=== PATIENT | female | born 2000 | race Two or more races ===

== ENCOUNTER 2024-08-31 15:44 | Emergency (ER) | payer MEDICAID, OTHER ==
[~2024-08-31] VITALS: Ht 149.9 cm; Wt 116.6 kg
--- NOTE | 2024-08-31 16:17 | ED.PDOC ---
Back pain HPI HPI Comments HPI: Poor Historian. 24-year-old female presents to emergency department for evaluation of three day history of left lumbosacral pain that radiates to the left groin area. Pain has been progressively getting worse. Pain is constant. Pain is worse with movement. Denies any other acute symptoms. Patient states on possible , currently, after missing her period, this month, with LMP on 07/23/24. PMHx: morbid obesity PSHx: , cholecystectomy REVIEW OF SYSTEMS: CONSTITUTIONAL: Denies acute: fever, diaphoresis, chills, generalized weakness. HEAD: Denies acute: headache, photophobia Eyes: Denies acute: Double vision, vision loss, eye pain, eye discharge. EARS: Denies acute: tinnitus, hearing loss, ear discharge, ear pain, THROAT: Denies acute: sore throat, swelling, difficulty swallowing , pain with swallowing, change in voice. NECK: Denies acute: neck pain, neck swelling, stiff neck. HEART: Denies acute : chest pain, palpitations, LUNGS: Denies acute: SOB, wheezing, cough, hemoptysis ABDOMEN: Denies acute: Nausea, Vomiting, diarrhea, melena , hematemesis, hematochezia SKIN: Denies acute: rash, redness, lesions, itchiness. EXTREMITIES: Denies acute: calf pain, numbness, tingling, weakness, denies pain in extremity. Neuro: Denies acute: focal neurological deficit, motor or sensory focal neurological deficit, tremors, seizure like activity, confusion, dizziness, change in mental status, loss of bowel or bladder function, cauda equina like symptoms. : Denies acute: dysuria, hematuria, flank pain, increase in urinary frequency. PSYCH: Denies acute: hallucination, suicidal ideation, homicidal ideation. FEMALE: Denies acute: abnormal vaginal bleeding, foul odor, unusual discharge. PHYSICAL EXAM: General: no acute distress, awake and alert. Head: normocephalic, atraumatic. Neck: supple, trachea is midline, no swelling. Throat: Normal phonation. Eyes:, no erythema, no purulent discharge, no proptosis, no icterus. Heart: regular rate, regular rhythm, no significant murmur appreciated. Lungs: no apparent respiratory distress, Able to speak in full sentences. No wheezing, no rhonchi, no crackles. No stridors Clear to auscultation bilaterally. Abdomen: Left lower quadrant focal tender to palpation, non distended, soft, no guarding, no rebound, + bowel sounds. Morbidly obese Patient points to her left lumbosacral area that is tender to palpation. She says that the pain radiates to her left groin area Neuro: Awake, Alert, oriented to name, self, situation, follows commands GCS=15. Speech is normal. Skin: no petechia, no purpura, no cyanosis, non-pale, not jaundice. Lower extremities: --no - Pitting edema no deformity, no focal swelling, no calf TTP. Makes eye contact. moves all four extremities. Face: no apparent facial droop. No CVA tenderness to percussion bilaterally. Ambulating in the ED independently. Chief Complaint: Pelvic Pain Time Seen by MD: 16:00 Allergies: Coded Allergies: NO KNOWN ALLERGIES (Unverified , 08/31/24) Home Meds Active Scripts Nitrofurantoin Monohydrate Mac (Macrobid) 100 Mg Cap, 100 MG PO BID for 7 Days, #14 CAP Prov:OLIVIA TANG Suly MONTALVO 09/01/24 Information Source: Patient, Relative Was a procedure done? Was a procedure done?: No Back Pain Differential Dx Differential Diagnosis: AAA, , Aortic Dissection, Appendicitis, Bowel Obstruction, Cholelithiasis, Cholangitis, DJD, Ectopic Pregnany, Fracture, Hepatitis, Musculoskeletal Pain, Pancreatits, Pyelonephritis, Strain, Urinary Obstruction, Urolithiasis, Ovarian Torsion X-Ray, Labs, Meds, VS Vital Signs Date Time Temp Pulse Resp B/P (MAP) Pulse Ox O2 Delivery O2 Flow Rate FiO2 09/01/24 03:30 99.0 82 16 133/87 (102) 97 99.0 09/01/24 00:33 99.0 88 16 136/88 (104) 96 99.0 09/01/24 00:31 88 16 96 Room Air* 0 21 08/31/24 21:23 99.3 93 18 136/91 (106) 97 08/31/24 16:10 98.0 92 19 135/93 (107) 96 Lab Test 09/01/24 00:51 08/31/24 22:57 08/31/24 16:53 08/31/24 16:30 Range/Units Lactic Acid Level 1.2 0.4-2.0 mmol/L White Blood Count 14.4 H 12.3 H 4.4-10.8 10^3/uL Red Blood Count 5.10 4.98 4.0-5.20 10^6/uL Hemoglobin 14.0 13.4 12.2-16.2 g/dL Hematocrit 42.7 41.6 36.0-46.0 % Mean Corpuscular Volume 83.6 83.5 80.0-100.0 fL Mean Corpuscular Hemoglobin 27.4 L 26.9 L 28.0-32.0 pg Mean Corpuscular Hemoglobin Concent 32.7 32.2 32.0-36.0 g/dL Red Cell Distribution Width 14.0 14.1 11.8-14.3 % Platelet Count 413 418 140-450 10^3/uL Mean Platelet Volume 8.2 8.5 6.9-10.8 fL Neutrophils (%) (Auto) 65.7 59.3 37.0-80.0 % Lymphocytes (%) (Auto) 24.8 29.1 10.0-50.0 % Monocytes (%) (Auto) 5.9 8.0 0.0-12.0 % Eosinophils (%) (Auto) 2.8 2.9 0.0-7.0 % Basophils (%) (Auto) 0.8 0.7 0.0-2.0 % Neutrophils # (Auto) 9.4 H 7.3 1.6-8.6 10 ^3/uL Lymphocytes # (Auto) 3.6 3.6 0.4-5.4 10 ^3/uL Monocytes # (Auto) 0.9 1.0 0-1.3 10 ^3/uL Eosinophils # (Auto) 0.4 0.4 0-0.8 10 ^3/uL Basophils # (Auto) 0.1 0.1 0-0.2 10 ^3/uL Nucleated Red Blood Cells 0.0 0.0 % Urine Color Light-yellow Yellow Urine Clarity Turbid H Clear Urine pH 6.0 5.0-9.0 Urine Specific [place] 1.020 1.001-1.035 Urine Protein Trace H Negative Urine Ketones Negative Negative Urine Blood Negative Negative /uL Urine Nitrite Negative Negative Urine Bilirubin Negative Negative Urine Urobilinogen Normal Negative mg/dL Urine Leukocyte Esterase 3+ Negative /uL Urine RBC 8 0 - 4 /hpf Urine WBC 21 0 - 5 /hpf Urine Squamous Epithelial Cells Few <5 /hpf Urine Bacteria Few H None Seen /hpf Urine Mucus Few None Seen Urine Glucose Normal Normal mg/dL Sodium Level 141 136-145 mmol/L Potassium Level 4.3 3.5-5.1 mmol/L Chloride Level 105 98-107 mmol/L Carbon Dioxide Level 31 20-31 mmol/L Anion Gap 5 5-15 Blood Urea Nitrogen 10 9-23 mg/dL Creatinine 0.64 0.550-1.02 mg/dL Glomerular Filtration Rate Calc 125 >90 mL/min BUN/Creatinine Ratio 15.6 10.0-20.0 Serum Glucose 89 74-106 mg/dL Calcium Level 10.4 8.7-10.4 mg/dL Total Bilirubin 0.2 0.2-1.0 mg/dL Aspartate Amino Transferase (AST) 28 13-40 U/L Alanine Aminotransferase (ALT) 74 H 7-40 U/L Alkaline Phosphatase 100 46-116 U/L Total Protein 7.2 5.7-8.2 g/dL Albumin 4.4 3.2-4.8 g/dL Beta HCG, Quantitative 1.6 1.5-4.2 mIU/mL Time of 1ST Reevaluation: 16:30 Reevaluation 1ST: Unchanged Time of 2ND Reevaluation: 19:07 (Patient eloped) Patient Education/Counseling: Diagnosis, Treatment Family Education/Counseling: No Family Present Comments Patient eloped after her 1st visit but when she came back at least an hour and a half later we opened up the same account she had previously. Patient presented with the above HPI.--pelvic pain----workup was initiated. patient was found with the above mentioned diagnosis. the following medications were ordered: Rocephin, hydrocodone, 1 L normal harshad ine bolus, the following tests were ordered: Labs, UA, CT abdomen and pelvis no contrast, transvaginal ultrasound, Patient ED course and VS have been stabilized. Patient has been reassessed in the ED and remained in a stable condition. Pertinent incidental findings were discussed with the patient and/or family. Patient/family voices understanding and is agreeable with plan. Patient has been observed in the ED adequate length of time to insure improvement/stability. Escalation of care considered: Consideration of escalation to observation or admission Patient was DISCHARGED home in a stable condition. All the reports of any imaging studies that were ordered by myself were reviewed by myself. Departure 1 Departure Time of Disposition: 19:06 Impression: Primary Impression: UTI (urinary tract infection) Additional Impressions: Eloped from emergency department Left ovarian cyst Disposition: 07 LEFT AWOL/ELOPED Condition: Stable Additional Instructions: Additional discharge instructions: You MUST follow-up with your primary care/family doctor in 1 to 2 days. If you are unable to see your primary care/family doctor, please return to our emergency room for re-assessment and re-evaluation in 1 to 2 days. Return to the emergency room here in our facility or to the nearest ER [facility] if your symptoms change or worsen. CONSULTATIONS: you MUST Follow-up for consultation as soon as possible with: Dr.-OB Woodson doctor in 1-2 days. Please call for appointment. You MUST call the consultants office yourself to make an appointment. You may need to arrange that through your insurance and/or your primary/family doctor. If you are unable to see the application support consultant in 1 to 2 days, you must return to our emergency room (or any other ER of your choice) for re-assessment and re- evaluation. Adequate fluid hydration. Below is a copy of your radiological report for follow up: [place] [id number] Ph: [phone] DIAGNOSTIC IMAGING Diagnostic Imaging Report : [id number] Signed PATIENT: ANISH ANDRE ACCT: [id number] UNIT: [id number] : 2000 LOC: ER ROOM / BED: / AGE / SEX: 24 / F ADM STATUS: REG ER SERVICE 30 ORDERING PHYSICIAN: OLIVIA TANG DO PROCEDURE(s): PELUS - PELVIC REASON: LLQ PAIN ORDER NUMBER(s): [id number], ACCESSION NUMBER(s): [id number] INDICATION: LLQ PAIN TECHNIQUE: Multiple real-time grayscale transabdominal sonographic images along with color and duplex Doppler of the uterus and ovaries were obtained. COMPARISON: None FINDINGS: The uterus measures 9.8 x 5.6 x 4.2 cm. The endometrial stripe measures 1.0 cm. Right ovary measures 4.6 x 2.7 x 3.6 cm with normal Doppler color flow. There is a 1 cm follicular cyst. Left ovary measures 2.9 x 2.6 x 2.7 cm with normal Doppler color flow. Cystic lesion measuring up to 3 cm. IMPRESSION: No sonographic evidence of acute pelvic abnormalities. The left ovarian cystic lesion measures up to 3 cm on this study however on same-day CT measures up to 5 cm. Possible Venetian blind sign of the uterus suggestive of adenomyosis. This can be further evaluated with nonemergent pelvic MRI if clinically indicated. ATED BY: MATEO CHI DO DICTATED DATE/TIME: 08/31/242247 SIGNED BY: MATEO CHI DO SIGNED DATE/TIME: 08/31/242247 CC: [place] [id number] Ph: [phone] DIAGNOSTIC IMAGING Diagnostic Imaging Report : [id number] Signed PATIENT: ANISH ANDRE ACCT: [id number] UNIT: [id number] : 2000 LOC: ER ROOM / BED: / AGE / SEX: 24 / F ADM STATUS: REG ER SERVICE 21 ORDERING PHYSICIAN: OLIVIA TANG DO PROCEDURE(s): ABPL - CT AB PEL WO CON-NO ORAL OR IV REASON: Left low back pain radiating to LLQ ORDER NUMBER(s): [id number], ACCESSION NUMBER(s): [id number] Exam: CT CT AB PEL WO CON-NO ORAL OR IV History: Left low back pain radiating to LLQ Comparison Study: None available at time of dictation. Technique: Multidetector spiral CT of the abdomen was performed from lung bases to pubic symphysis. Imaging was performed without IV contrast. Axial, coronal and sagittal multiplanar reformats were obtained from the axial data set by the technologist. Radiation Dose : 1. Abdomen/Pelvis: CTDIvol 27 mGy, DLP 1565 mGy*cm. Findings: Evaluation of solid organs is limited due to lack of intravenous contrast use. Lung Bases: No acute or significant lung base finding. Normal heart size. No pleural or pericardial effusion. Liver: The liver is normal in size. No focal lesions. Gallbladder and Biliary Tree: Gallbladder is surgically absent. Spleen: Unremarkable Pancreas: The pancreas is grossly normal in appearance. Adrenal Glands: Unremarkable Kidneys: Kidneys are grossly normal without calculi or hydronephrosis. Bladder: Grossly unremarkable for degree of distention. Bowel: The stomach is grossly normal in appearance. Small bowel and colon are normal in caliber and distribution. Normal appendix is visualized in the right lower quadrant without findings of appendicitis. Ascites: Absent Lymphadenopathy: No mesenteric, retroperitoneal or periportal lymphadenopathy. Abdominal Wall and Mesentery: Unremarkable. Vasculature: The visualized abdominal aorta is normal in size and caliber. Evaluation of abdominal and pelvic vessels is limited due to lack of intravenous contrast. Pelvic Organs: Cystic lesion in the left adnexa measuring 5 cm. Musculoskeletal: No aggressive focal bony lesions, acute fractures or dislocation. IMPRESSION: No acute abdominal or pelvic findings. Left adnexal hypodensity measuring 5 cm which can be further evaluated with ultrasound if clinically indicated. END IMPRESSION: ATED BY: MATEO CHI DO DICTATED DATE/TIME: 08/31/242214 SIGNED BY: MATEO CHI DO SIGNED DATE/TIME: 08/31/242214 CC: e-Prescriptions Nitrofurantoin Monohydrate Mac (Macrobid) 100 Mg Cap 100 MG PO BID for 7 Days, #14 CAP Prov: OLIVIA TANG DO 09/01/24 Discharged With: Self Critical Care Note Critical Care Time?: No I personally scribed for OLIVIA TANG DO ([email or web address]) on 08/31/24 at 16:17. Electronically submitted by Avery Waterman ([email or web address]). OLIVIA TANG DO Aug 31, 2024 16:17
[2024-08-31 17:02] LABS: Urine Bacteria FEW /hpf (None Seen); Urine Blood Negative /uL (Negative); Urine Clarity Turbid (Clear); Urine Color Light-Yellow (Yellow); Urine Mucus FEW (None Seen); Urine Protein, UAD TRACE (Negative); Urine Squamous Epithelial Cell FEW /hpf (<5); Urine Urobilinogen Normal (Negative); Urine WBC 21 /hpf (0 - 5)
[2024-08-31 17:08] LABS: Basophils # (auto) 0.1 10 ^3/uL (0-0.2); Basophils % (auto) 0.7 % (0.0-2.0); Eosinophils # (auto) 0.4 10 ^3/uL (0-0.8); Eosinophils % (auto) 2.9 % (0.0-7.0); Hematocrit 41.6 % (36.0-46.0); Hemoglobin 13.4 g/dL (12.2-16.2); Lymphocytes # (auto) 3.6 10 ^3/uL (0.4-5.4); Lymphocytes % (auto) 29.1 % (10.0-50.0); Mean Corpuscular Hemoglobin 26.9 pg (28.0-32.0); Mean Corpuscular Hgb Conc. 32.2 g/dL (32.0-36.0); Mean Corpuscular Volume 83.5 fL (80.0-100.0); Neutrophils # (auto) 7.3 10 ^3/uL (1.6-8.6); Neutrophils % (auto) 59.3 % (37.0-80.0); Platelet Count (auto) 418 10^3/uL (140-450); Red Blood Cells 4.98 10^6/uL (4.0-5.20); Red Cell Distribution Width 14.1 % (11.8-14.3); White Blood Cell 12.3 10^3/uL (4.4-10.8)
[2024-08-31 17:27] LABS: Albumin 4.4 g/dL (3.2-4.8); Alkaline Phosphatase 100 U/L (46-116); Anion Gap 5 (5-15); Aspartate Aminotransferase 28 U/L (13-40); BUN/Creatinine Ratio 15.6 (10.0-20.0); Blood Urea Nitrogen 10 mg/dL (9-23); Calcium 10.4 mg/dL (8.7-10.4); Carbon Dioxide 31 mmol/L (20-31); Chloride 105 mmol/L (98-107); Glucose 89 mg/dL (74-106); Potassium 4.3 mmol/L (3.5-5.1); Sodium 141 mmol/L (136-145)
[2024-08-31 17:28] LABS: Bilirubin, Total 0.2 mg/dL (0.2-1.0); Total Protein 7.2 g/dL (5.7-8.2)
[2024-08-31 17:36] LABS: Alanine Aminotransferase 74 U/L (7-40)
--- NOTE | 2024-08-31 22:17 | DVH ---
Exam: CT CT AB PEL WO CON-NO ORAL OR IV History: Left low back pain radiating to LLQ Comparison Study: None available at time of dictation. Technique: Multidetector spiral CT of the abdomen was performed from lung bases to pubic symphysis. Imaging was performed without IV contrast. Axial, coronal and sagittal multiplanar reformats were ob tained from the axial data set by the technologist. Radiation Dose : 1. Abdomen/Pelvis: CTDIvol 27 mGy, DLP 1565 mGy*cm. Findings: Evaluation of solid organs is limited due to lack of intravenous contrast use. Lung Bases: No acute or significant lung base finding. Normal heart size. No pleural or pericardial effusion. Liver: The liver is normal in size. No focal lesions. Gallbladder and Biliary Tree: Gallbladder is surgically absent. Spleen: Unremarkable Pancreas: The pancreas is grossly normal in appearance. Adrenal Glands: Unremarkable Kidneys: Kidneys are grossly normal without calculi or hydronephrosis. Bladder: Grossly unremarkable for degree of distention. Bowel: The stomach is grossly normal in appearance. Small bowel and colon are normal in caliber and d istribution. Normal appendix is visualized in the right lower quadrant without findings of appendici tis. Ascites: Absent Lymphadenopathy: No mesenteric, retroperitoneal or periportal lymphadenopathy. Abdominal Wall and Mesentery: Unremarkable. Vasculature: The visualized abdominal aorta is normal in size and caliber. Evaluation of abdominal a nd pelvic vessels is limited due to lack of intravenous contrast. Pelvic Organs: Cystic lesion in the left adnexa measuring 5 cm. Musculoskeletal: No aggressive focal bony lesions, acute fractures or dislocation. IMPRESSION: No acute abdominal or pelvic findings. Left adnexal hypodensity measuring 5 cm which can be further e valuated with ultrasound if clinically indicated. END IMPRESSION:
--- NOTE | 2024-08-31 22:51 | DVH ---
INDICATION: LLQ PAIN TECHNIQUE: Multiple real-time grayscale transabdominal sonographic images along with color and duplex Doppler of the uterus and ovaries were obtained. COMPARISON: None FINDINGS: The uterus measures 9.8 x 5.6 x 4.2 cm. The endometrial stripe measures 1.0 cm. Right ovary measures 4.6 x 2.7 x 3.6 cm with normal Doppler color flow. There is a 1 cm follicular c yst. Left ovary measures 2.9 x 2.6 x 2.7 cm with normal Doppler color flow. Cystic lesion measuring up to 3 cm. IMPRESSION: No sonographic evidence of acute pelvic abnormalities. The left ovarian cystic lesion measures up to 3 cm on this study however on same-day CT measures up to 5 cm. Possible Venetian blind sign of the ut erus suggestive of adenomyosis. This can be further evaluated with nonemergent pelvic MRI if clinical ly indicated.
[2024-08-31 23:05] LABS: Basophils # (auto) 0.1 10 ^3/uL (0-0.2); Basophils % (auto) 0.8 % (0.0-2.0); Eosinophils # (auto) 0.4 10 ^3/uL (0-0.8); Eosinophils % (auto) 2.8 % (0.0-7.0); Hematocrit 42.7 % (36.0-46.0); Lymphocytes # (auto) 3.6 10 ^3/uL (0.4-5.4); Lymphocytes % (auto) 24.8 % (10.0-50.0); Mean Corpuscular Hemoglobin 27.4 pg (28.0-32.0); Mean Corpuscular Hgb Conc. 32.7 g/dL (32.0-36.0); Mean Corpuscular Volume 83.6 fL (80.0-100.0); Monocytes # (auto) 0.9 10 ^3/uL (0-1.3); Monocytes % (auto) 5.9 % (0.0-12.0); Neutrophils # (auto) 9.4 10 ^3/uL (1.6-8.6); Neutrophils % (auto) 65.7 % (37.0-80.0); Platelet Count (auto) 413 10^3/uL (140-450); White Blood Cell 14.4 10^3/uL (4.4-10.8)
[2024-09-01] MEDS: cefTRIAXone 1GM/50ML D5W 50 ML IV ONE (00:30)
[2024-09-01] MEDS: HYDROcodone-ACET 5/325MG TAB PO ONE (00:30)
[2024-09-01 00:31] VITALS: PULSE 88; RESP 16; O2SAT 96
[2024-09-01] MEDS: SODIUM CHLORIDE 0.9% 1,000 ML IV ONE (00:41)
[2024-09-01] MEDS ORDERED: ASPirin 325 MG TAB PO ONE (01:45)
[2024-09-01] MEDS ORDERED: NITR-87 PO (01:48)
[2024-09-01 03:30] VITALS: BP 133/87; PULSE 82; RESP 16; TEMP 99; O2SAT 97
== END 2024-09-01 03:40 | disposition home or self-care (01) ==
LOC: ER 15:44
DX: N39.0 Urinary tract infection, site not specified (principal); R10.2 Pelvic and perineal pain; N83.202 Unspecified ovarian cyst, left side; Z90.49 Acquired absence of other specified parts of digestive tract; Z98.890 Other specified postprocedural states
CPT/HCPCS: 36415; 74176; 76830; 76856; 80053; 81001; 83605; 84702; 85025; 96365; 99285; J0696

== ENCOUNTER 2024-08-31 20:40 | Emergency (ER) | payer MEDICAID ==
[2024-09-01] MEDS ORDERED: NITR-87 PO (01:48)
== END 2024-09-01 02:51 | disposition left against medical advice (07) ==
LOC: ER 20:40
DX: R10.9 Unspecified abdominal pain (principal); Z53.21 Procedure and treatment not carried out due to patient leaving prior to being seen by health care provider

== ENCOUNTER 2024-11-17 22:30 | Emergency (ER) | payer MEDICAID ==
[~2024-11-17] VITALS: Ht 149.9 cm; Wt 117.5 kg
[~2024-11-17 22:30] MED LIST: NITR-87 PO
--- NOTE | 2024-11-17 23:00 | ED.PDOC ---
HPI Comments HPI: Poor Historian. 24-year-old female presents to emergency department for evaluation of non specific midsternal chest pain nonradiating and sensation of shortness of breath when she tries to breathe. Patient completed course of antibiotics for a dental procedure yesterday. Patient has been taking Naprosyn 500 mg twice a day. Denies any tobacco abuse. Denies any family history of coronary artery disease. Past Medical History: Denies any Past Surgical History: , cholecystectomy, tooth extraction REVIEW OF SYSTEMS: CONSTITUTIONAL: Denies acute: fever, diaphoresis, chills, generalized weakness. HEAD: Denies acute: headache, photophobia Eyes: Denies acute: Double vision, vision loss, eye pain, eye discharge. EARS: Denies acute: tinnitus, hearing loss, ear discharge, ear pain, THROAT: Denies acute: sore throat, swelling, difficulty swallowing , pain with swallowing, change in voice. NECK: Denies acute: neck pain, neck swelling, stiff neck. HEART: Denies acute : palpitations, LUNGS: Denies acute: wheezing, cough, hemoptysis ABDOMEN: Denies acute: abdominal pain, Vomiting, diarrhea, melena , hematemesis, hematochezia SKIN: Denies acute: rash, redness, lesions, itchiness. EXTREMITIES: Denies acute: calf pain, numbness, tingling, weakness, denies pain in extremity. Denies acute: Low back pain. Neuro: Denies acute: focal neurological deficit, motor or sensory focal neurological deficit, tremors, seizure like activity, confusion, dizziness, change in mental status, loss of bowel or bladder function, cauda equina like symptoms. : Denies acute: dysuria, hematuria, flank pain, increase in urinary frequency. PSYCH: Denies acute: hallucination, suicidal ideation, homicidal ideation. FEMALE: Denies acute: abnormal vaginal bleeding, foul odor, unusual discharge. PHYSICAL EXAM: General: no acute distress, awake and alert. Head: normocephalic, atraumatic. Neck: supple, trachea is midline, no swelling. Throat: Normal phonation. Eyes:, no erythema, no purulent discharge, no proptosis, no icterus. Heart: regular rate, regular rhythm, no significant murmur appreciated. Lungs: no apparent respiratory distress, Able to speak in full sentences. No wheezing, no rhonchi, no crackles. No stridors Clear to auscultation bilaterally. Abdomen: non tender to palpation, non distended, soft, no guarding, no rebound, + bowel sounds. Morbidly obese Neuro: Awake, Alert, oriented to name, self, situation, follows commands GCS=15. Speech is normal. Skin: no petechia, no purpura, no cyanosis, non-pale, not jaundice. Lower extremities: --no - Pitting edema no deformity, no focal swelling, no calf TTP. Makes eye contact. moves all four extremities. Face: no apparent facial droop. Ambulating in the ED independently. No nuchal rigidity, Kernig's sign, Brudzinski's sign, no meningeal signs. ED COURSE: Chief Complaint: Chest Pain Time Seen by MD: 22:45 Reviewed Notes: Nurses Notes, Medications, Allergies Allergies: Coded Allergies: NO KNOWN ALLERGIES (Unverified , 08/31/24) Home Meds Active Scripts Nitrofurantoin Monohydrate Mac (Macrobid) 100 Mg Cap, 100 MG PO BID for 7 Days, #14 CAP Prov:OLIVIA TANG DO 09/01/24 Information Source: Patient Was a procedure done? Was a procedure done?: No CP Differential Dx Differential Diagnosis: N/A Differential Diagnosis: Other (Ddx include but not limitied to gastritis, musculoskeletal pain, radiculopathy, atypical chest pain, dissection, aneurysm, ACS, unstable angina, hiatal hernia, GERD, anxiety, costochondritis, PE, pneumothroax, neoplasm, cardiac ischemia, drug abuse, anemia.) X-Ray, Labs, Meds, VS Vital Signs Date Time Temp Pulse Resp B/P (MAP) Pulse Ox O2 Delivery O2 Flow Rate FiO2 11/17/24 23:02 79 11/17/24 22:30 98.1 81 16 125/81 (96) 96 Lab Test 11/18/24 00:13 11/17/24 23:10 11/17/24 23:00 Range/Units Troponin I High Sensitivity < 3 L < 3 L </=34 ng/L White Blood Count 14.1 H 4.4-10.8 10^3/uL Red Blood Count 5.21 H 4.0-5.20 10^6/uL Hemoglobin 14.0 12.2-16.2 g/dL Hematocrit 43.3 36.0-46.0 % Mean Corpuscular Volume 83.2 80.0-100.0 fL Mean Corpuscular Hemoglobin 26.8 L 28.0-32.0 pg Mean Corpuscular Hemoglobin Concent 32.2 32.0-36.0 g/dL Red Cell Distribution Width 15.4 H 11.8-14.3 % Platelet Count 386 140-450 10^3/uL Mean Platelet Volume 8.5 6.9-10.8 fL Neutrophils (%) (Auto) 65.9 37.0-80.0 % Lymphocytes (%) (Auto) 23.6 10.0-50.0 % Monocytes (%) (Auto) 6.4 0.0-12.0 % Eosinophils (%) (Auto) 3.2 0.0-7.0 % Basophils (%) (Auto) 0.9 0.0-2.0 % Neutrophils # (Auto) 9.3 H 1.6-8.6 10 ^3/uL Lymphocytes # (Auto) 3.3 0.4-5.4 10 ^3/uL Monocytes # (Auto) 0.9 0-1.3 10 ^3/uL Eosinophils # (Auto) 0.4 0-0.8 10 ^3/uL Basophils # (Auto) 0.1 0-0.2 10 ^3/uL Nucleated Red Blood Cells 0.0 % Sodium Level 140 136-145 mmol/L Potassium Level 4.0 3.5-5.1 mmol/L Chloride Level 105 98-107 mmol/L Carbon Dioxide Level 28 20-31 mmol/L Anion Gap 7 5-15 Blood Urea Nitrogen 11 9-23 mg/dL Creatinine 0.52 L 0.550-1.02 mg/dL Glomerular Filtration Rate Calc 131 >90 mL/min BUN/Creatinine Ratio 21.2 H 10.0-20.0 Serum Glucose 97 74-106 mg/dL Lactic Acid Level 1.3 0.4-2.0 mmol/L Calcium Level 10.3 8.7-10.4 mg/dL Total Bilirubin 0.3 0.2-1.0 mg/dL Aspartate Amino Transferase (AST) 29 13-40 U/L Alanine Aminotransferase (ALT) 78 H 7-40 U/L Alkaline Phosphatase 93 46-116 U/L Total Protein 7.4 5.7-8.2 g/dL Albumin 4.8 3.2-4.8 g/dL Lipase 32 12-53 U/L Urine Color Light-yellow Yellow Urine Clarity Clear Clear Urine pH 6.5 5.0-9.0 Urine Specific [place] 1.021 1.001-1.035 Urine Protein Negative Negative Urine Ketones Negative Negative Urine Blood Negative Negative /uL Urine Nitrite Negative Negative Urine Bilirubin Negative Negative Urine Urobilinogen Normal Negative mg/dL Urine Leukocyte Esterase Negative Negative /uL Urine RBC 1 0 - 4 /hpf Urine Microscopic WBC < 1 0-5 /HPF Urine Squamous Epithelial Cells Few <5 /hpf Urine Bacteria None seen None Seen /hpf Urine Mucus Few None Seen Urine Glucose Normal Normal mg/dL Current Medications Medications (Trade) Dose Ordered Sig/Blanca Route Start Time Stop Time Status Last Admin Pantoprazole Sodium (Protonix Tablet) 40 mg ONCE ONCE PO 11/17/24 23:00 11/17/24 23:01 DC 11/18/24 02:16 Sucralfate (Carafate Tab) 1 gm ONCE ONCE PO 11/17/24 23:00 11/17/24 23:01 DC 11/18/24 02:16 Lidocaine HCl (Xylocaine 2% Viscous) 10 ml ONCE ONCE PO 11/17/24 23:00 11/17/24 23:01 DC 11/18/24 02:16 [place] [id number] Ph: [phone] DIAGNOSTIC IMAGING Diagnostic Imaging Report : [id number] Signed PATIENT: ANISH ANDREACCT: [id number] UNIT: [id number] : 2000 LOC: ER ROOM / BED: / AGE / SEX: 24 / F ADM STATUS: REG ER SERVICE 647 ORDERING PHYSICIAN: OLIVIA TANG DO PROCEDURE(s): CXRP - CHEST PORTABLE REASON: cp ORDER NUMBER(s): [id number], ACCESSION NUMBER(s): [id number] CHEST RADIOGRAPH Indication: cp Technique: Single frontal view of the chest was obtained COMPARISON: None FINDINGS: Lines and Tubes: None Lungs: Clear Pleura: No effusion. No pneumothorax. Cardiomediastinal contours: Unremarkable Bones: Unremarkable IMPRESSION: No abnormality. ATED BY: SUKHI BLANCO MD DICTATED DATE/TIME: 11/17/242332 SIGNED BY: SUKHI BLANCO MD SIGNED DATE/TIME: 11/17/242332 CC: Time of 1ST Reevaluation: 02:20 Reevaluation 1ST: Resolved Patient Education/Counseling: Diagnosis, Treatment Family Education/Counseling: No Family Present Comments Patient presented with the above HPI.--chest pain----workup was initiated. patient was found with the above mentioned diagnosis. the following medications were ordered: please refer to order lists of meds and tests obtained by myself Dr. Tang. Patient ED course and VS have been stabilized. Patient has been reassessed in the ED and remained in a stable condition. Pertinent incidental findings were discussed with the patient and/or family. Patient/family voices understanding and is agreeable with plan. Patient has been observed in the ED adequate length of time to insure improvement/stability. Escalation of care considered: Consideration of escalation to observation or admission Heart score is low. Patient was DISCHARGED home in a stable condition. All the reports of any imaging studies that were ordered by myself were reviewed by myself. Departure 1 Departure Time of Disposition: 01:03 Impression: Primary Impression: Chest pain Disposition: 01 HOME / SELF CARE / HOMELESS Condition: Stable Additional Instructions: Additional discharge instructions: You MUST follow-up with your primary care/family doctor in 1 to 2 days. If you are unable to see your primary care/family doctor, please return to our emergency room for re-assessment and re-evaluation in 1 to 2 days. Return to the emergency room here in our facility or to the nearest ER [facility] if your symptoms change or worsen. CONSULTATIONS: you MUST Follow-up for consultation as soon as possible with: -cardiology and gastroenterology in 1-2 days. Please call for appointment. You MUST call the consultants office yourself to make an appointment. You may need to arrange that through your insurance and/or your primary/family doctor. If you are unable to see the air quality consultant in 1 to 2 days, you must return to our emergency room (or any other ER of your choice) for re-assessment and re- evaluation. Adequate fluid hydration. Repeat CBC in 24-48 hours. Avoid fatty greasy spicy food. Avoid caffeinated products. Avoid NSAIDs including Naprosyn. Use Tylenol for pain control. Discharged With: Self Critical Care Note Critical Care Time?: No Heart Score Heart Score: Heart Score Response (Comments) Value History Slightly Suspicious 0 EKG Normal 0 Age <45 0 Risk Factors 1 or 2 risk factors 1 Troponin Normal limit 0 Total 1 OLIVIA TANG DO Nov 17, 2024 23:00
--- NOTE | 2024-11-17 23:36 | DVH ---
CHEST RADIOGRAPH Indication: cp Technique: Single frontal view of the chest was obtained COMPARISON: None FINDINGS: Lines and Tubes: None Lungs: Clear Pleura: No effusion. No pneumothorax. Cardiomediastinal contours: Unremarkable Bones: Unremarkable IMPRESSION: No abnormality.
[2024-11-17 23:47] LABS: Basophils # (auto) 0.1 10 ^3/uL (0-0.2); Eosinophils # (auto) 0.4 10 ^3/uL (0-0.8); Mean Corpuscular Hemoglobin 26.8 pg (28.0-32.0); Mean Corpuscular Hgb Conc. 32.2 g/dL (32.0-36.0); Monocytes # (auto) 0.9 10 ^3/uL (0-1.3); White Blood Cell 14.1 10^3/uL (4.4-10.8)
[2024-11-17 23:49] LABS: Basophils % (auto) 0.9 % (0.0-2.0); Eosinophils % (auto) 3.2 % (0.0-7.0); Hematocrit 43.3 % (36.0-46.0); Lymphocytes # (auto) 3.3 10 ^3/uL (0.4-5.4); Lymphocytes % (auto) 23.6 % (10.0-50.0); Mean Corpuscular Volume 83.2 fL (80.0-100.0); Monocytes % (auto) 6.4 % (0.0-12.0); Neutrophils # (auto) 9.3 10 ^3/uL (1.6-8.6); Neutrophils % (auto) 65.9 % (37.0-80.0); Platelet Count (auto) 386 10^3/uL (140-450); Red Blood Cells 5.21 10^6/uL (4.0-5.20); Red Cell Distribution Width 15.4 % (11.8-14.3)
[2024-11-17 23:50] LABS: Urine Bacteria None Seen /hpf (None Seen)
[2024-11-18 00:02] LABS: Albumin 4.8 g/dL (3.2-4.8); Alkaline Phosphatase 93 U/L (46-116); Anion Gap 7 (5-15); Aspartate Aminotransferase 29 U/L (13-40); BUN/Creatinine Ratio 21.2 (10.0-20.0); Blood Urea Nitrogen 11 mg/dL (9-23); Calcium 10.3 mg/dL (8.7-10.4); Carbon Dioxide 28 mmol/L (20-31); Chloride 105 mmol/L (98-107); Glucose 97 mg/dL (74-106); Lipase 32 U/L (12-53); Sodium 140 mmol/L (136-145)
[2024-11-18 00:03] LABS: Total Protein 7.4 g/dL (5.7-8.2)
[2024-11-18 00:05] LABS: Alanine Aminotransferase 78 U/L (7-40); Bilirubin, Total 0.3 mg/dL (0.2-1.0)
[2024-11-18 00:07] LABS: Urine Blood Negative /uL (Negative); Urine Clarity Clear (Clear); Urine Color Light-Yellow (Yellow); Urine Mucus FEW (None Seen); Urine Protein, UAD Negative (Negative); Urine Specific Gravity 1.021 (1.001-1.035); Urine Squamous Epithelial Cell FEW /hpf (<5); Urine Urobilinogen Normal (Negative); Urine WBC < 1 /HPF (0-5); Urine pH 6.5 (5.0-9.0)
[2024-11-18 02:12] VITALS: BP 140/90; PULSE 75; RESP 18; TEMP 97.8; O2SAT 98
[2024-11-18] MEDS: PANTOPRAZOLE 40 MG TAB PO ONE (02:16)
[2024-11-18] MEDS: LIDOCAINE VISCOUS 2% 15ML UD PO ONE (02:16)
[2024-11-18] MEDS: SUCRALFATE 1 GM TAB PO ONE (02:16)
--- NOTE | 2024-11-18 10:40 | ECG ---
[facility] Test Date: 2024-11-17 Test Time: 23:02:23 Pat Name: ANISH ANDRE Department: ER Room: Gender: F Dependency Counselor: : 2000 Requested By: OLIVIA TANG Order Number: [id number] Reading MD: Rodriguez Beach Measurements Intervals [place] Rate: 79 P: 25 VT: 177 QRS: 10 QRSD: 86 T: 56 QT: 378 QTc: 434 Interpretive Statements Sinus rhythm Electronically Signed On 11-20-2024 17:43:43 PST by Rodriguez Beach Please click the below link to view image of tracing.
== END 2024-11-18 02:27 | disposition home or self-care (01) ==
LOC: ER 22:30
DX: R07.89 Other chest pain (principal); Z90.49 Acquired absence of other specified parts of digestive tract; Z98.890 Other specified postprocedural states
CPT/HCPCS: 36415; 71045; 80053; 81001; 83605; 83690; 84484; 85025; 93005